=== PATIENT | female | born 1995 | race Caucasian/White ===

== ENCOUNTER 2025-05-07 10:40 | Outpatient (CLI) | payer MEDICAID, SELFPAY ==
[2025-05-07 17:54] LABS: Hematocrit 35.1 % (37.0-47.0); Hemoglobin 9.7 g/dL (12.2-16.2); Immature Granulocytes % 0.2 %; Mean Corpuscular Hemoglobin 18.5 pg (27.0-31.2); Mean Corpuscular Volume 66.9 fl (81-99); Nucleated Red Blood Cells % 0 %; Platelet Count 333 K/mm3 (142-424); Red Blood Count 5.25 M/mm3 (4.20-5.40); Red Cell Distribution Width-SD 50.8 fL; White Blood Count 9.7 K/mm3 (4.8-10.8)
[2025-05-07 18:23] LABS: Alanine Aminotransferase 10 U/L (12-78); Albumin Level 4.0 g/dl (3.5-5.0); Albumin/Globulin Ratio 1.7 (1.1-1.8); Alkaline Phosphatase 78 U/L (38-126); Anion Gap 20.5 mEq/L (5-15); Aspartate Amino Transferase 22 U/L (14-36); Bilirubin,Total 0.5 mg/dl (0.2-1.3); Blood Urea Nitrogen 9 mg/dl (7-17); Calcium 8.0 mg/dl (8.4-10.2); Carbon Dioxide 18 mmol/L (22.0-30.0); Chloride 104 mmol/L (98-107); Cholesterol 125 mg/dl (140-200); Creatinine,Serum 0.80 mg/dl (0.52-1.04); Estimated Glomerular Filt Rate 85 ml/min (>60); GFR (African American) 103 ML/MIN (>60); Globulin 2.4 g/dL (1.3-3.2); HDL Cholesterol 38 mg/dl (40-60); Potassium 4.5 mmoL/L (3.5-5.1); Sodium 138 mmol/L (136-145); Total Protein,Serum 6.4 g/dl (6.3-8.2); Triglycerides 72 mg/dl (30-150)
[2025-05-07 18:24] LABS: Glucose 46 mg/dl (74-100)
[2025-05-07 18:51] LABS: Mean Corpuscular HGB Conc 27.6 g/dL (31.8-35.4)
[2025-05-07 18:55] LABS: Thyroid Stimulating Hormone 5.36 uIU/mL (0.465-4.68)
[2025-05-07 18:57] LABS: Hepatitis C Ab Qual. W/ RFX NEGATIVE (Negative)
--- OUTSIDE RECORDS SUMMARY | 2025-05-08 09:52 | XMS_ITS | Clinical Summary ---
Author Organization Healthcare Address [address] 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 32 tablet 11 07/23/2023 Active hydrOXYzine pamoate (Vistaril) 25 MG capsule Take 1 capsule (25 mg) by mouth 3 (three) times a day if needed for anxiety. 30 capsule 1 09/17/2023 Active hydrOXYzine HCl (Atarax) 25 MG tablet Take 1 tablet (25 mg) by mouth every 6 (six) hours if needed for anxiety. 120 tablet 12/17/2023 Active LaMICtal 25 MG tablet Take 1 tablet (25 mg) by mouth. 08/15/2024 Active norethindrone (Aygestin) 5 MG tablet Take 1 tablet (5 mg) by mouth daily. 30 tablet 3 12/25/2024 Active folic acid (Folvite) 1 MG tabletIndicatio ns:Folic acid deficiency Take 2 tablets (2 mg) by mouth daily. 60 tablet 3 12/27/2024 Active Hospital, Clinic, or Other Facility Administered Medication Ordered Dose Route Frequency Start Date End Date Status ferumoxytol (Feraheme) injection 510 mgIndications:Abnormal uterine bleeding (AUB),Chronic blood loss anemia,Iron deficiency anemia due to chronic blood loss 510 mg IV Once 12/27/2024 Active Active Problems Problem Noted Date Diagnosed Date Normal labor 02/10/2024 Abnormal ultrasound 01/21/2024 BMI 50.0-59.9, adult 01/21/2024 Breech presentation, no version 01/21/2024 Tobacco use disorder 12/16/2023 Iron deficiency 12/16/2023 GERD (gastroesophageal reflux disease) Overview (11/12/2023): 11/12/2023 taking pepcid, added pantoprazole Dichorionic diamniotic twin 09/12/2023 Overview (01/21/2024): Desires C/S regardless of presentation US today 01/21/2024 shows A with polyhydramnios; B smaller with lagging AC and elevated dopplers (1 instance of IAEDF); breech/transverse; NST reactive x2 MFM recommended BTMS due to high risk for PTD - sent to triage for BTMS 01/21/2024 I recommended delivery at for primary C/S due to 37w delivery of twins and high risk of NICU admission and getting at . Patient agrees. Case request submitted. Obesity complicating childbirth 09/12/2023 Overview (09/12/2023): Early GCT 130 Supervision of high risk in [facility] 09/12/2023 Overview (01/21/2024): NIPT neg, male/female Di/di twins Vitamin B 12 deficiency 09/12/2023 Overview (01/07/2024): Recheck B12 11/12/2023 normal Enlarged uterus 06/01/2023 Amenorrhea 03/05/2023 Assessment & Plan (03/24/2023 9:01 AM EDT): Remains amenorrheic. Labs normal. Ultrasound revealed polycystic ovaries. This is not a new finding and patient was aware she had this. Will have patient follow with MD for further evaluation and management. Assessment & Plan (03/05/2023 10:56 AM EDT): UPT negative in office. Labs ordered. TVUS ordered. Follow up in 1 month to review results. Uterine polyp 07/01/2022 Overview (06/01/2023): Had hysteroscopy D&C and polyp removal in 12/2022 SIS 06/01/2023 shows another polyp Recommend holding on polypectomy for now and optimizing thyroid, male infertility, weight loss, ovulation, tobacco cessation etc. Will reevaluate for polypectomy if worsening heavy bleeding or no with ovulatory cycles after 3-6 mo Tobacco abuse counseling 07/01/2022 Depression 07/01/2022 Pre-conception counseling 07/01/2022 Morbid obesity with body mass index (BMI) of 40. 0 or higher 05/27/2022 Abnormal uterine bleeding (AUB) 05/27/2022 Assessment & Plan (05/27/2022 3:51 PM EDT): l Urine test is negative. Lab work and ultrasound scheduled for patient. Plan for Pap at repeat visit. For painful intercourse, patient was scheduled for pelvic floor therapy. She will trial ibuprofen prior to intercourse. Plan for routine STI screening at repeat visit if patient desires. Dyspareunia in female 05/27/2022 Female infertility 03/30/2019 Overview (06/01/2023): A1C 5.1 2022, AMH pending Taking letrozole SIS 06/01/2023 showed polyp, tubal patency bilateral, polycystic ovaries Semen analysis showed low sperm counts Discussed optimizing partner's health - weight loss, etc Has urology consult end of june Discussed ovulation testing, timed intercourse Call with positive ovulation test to confirm ovulation with serum progesterone 7-8 days later Hypothyroidism 03/30/2019 Polycystic ovarian syndrome 03/30/2019 Abnormal uterine bleeding 03/01/2019 Resolved Problems Problem Noted Date Diagnosed Date Resolved Date 30 weeks gestation of 12/24/2023 12/26/2024 Assessment & Plan (12/24/2023 1:26 PM EST): First trimester 07/18/20234 Assessment & Plan (07/18/2023 8:13 PM EDT): Discussed nutrition, medication, and exercise in . Handouts given. Discussed avoidance of cat litter during . Discussed taking vitamin consistently. Discussed dating ultrasound, noninvasive testing, nuchal translucency ultrasound, and first-trimester blood work Dating ultrasound ordered. Follow-up in 4 weeks Family History Medical History Relation Name Comments Cancer Father Teddy yang Relation Name Status Comments Father Teddy yang Social History Tobacco Use Types Packs/Day Years Used Date Smoking Tobacco: Every Day Cigarettes 0.5 8 Smokeless Tobacco: Never Tobacco Cessation:Ready to Q uit: Not Asked; Counseling Given: Not Answered Comments:11/02-1 ppd Alcohol Use Standard Drinks/Week Comments No 0 (1 standard drink = 0.6 oz pur e alcohol) PHQ-2 Answer Date Recorded Patient Health Questionnaire-2 Score 0 12/25/2024 PRAPARE - Transportation Answer Date Re corded In the past 12 months, has l ack of transportation kept you from medical appointments or from getting medications? No 07/02 In the past 12 months, has l ack of transportation kept you from meetings, work, or from getting things needed for daily living? No 07/14/2023 Worthington Depression Scale Answer Date Recorded Wor[place] Depression Scale Total 0 03/29/2024 The thought of harming myself has occurred to me . Never 03/29/2024 PHQ-9 Answer Date Recorded Patient Health Questionnaire-9 Score 0 11/07/2024 CAGE ASSESSMENT Answer Date Recorded Cage unable to access Not on file 02/10/2024 Cage max number of drinks Not on file 2023 Cage Beverages a week Not on file 02/10/2024 Have you ever felt you should CUT down on your d rinking? 0 02/10/2024 Have you been ANNOYED by people criticizing your drinking? 0 02/10/2024 Have you felt GUILTY about your drinking? 0 02/10/2024 Have you had a drink first t mitzi in the morning ([employer]) to steady your nerves or to get rid of a hangover? 0 02/10/2024 CAGE Questionnaire Score 0 024 PHQ-2A Answer Date Recorded Patient Health Questionnaire-2 Score 0 09/17/2023 Comments Unknown Sex and Gender Information Value Date Recorded Sex Assigned at Female 08/10/2022 3:51 PM EDT Legal Sex Female 6:32 PM EDT Gender Identity Female 08/10/2022 3:51 PM EDT Sexual Orientation Straight 08/10/2022 3: 51 PM EDT Last Filed Vital Signs Vital Sign Reading Time Taken Comments Blood Pressure 109/72 12/25/2024 8:49 AM EST Pulse 84 12/25/2024 8:49 AM EST Temperature 36.7 C (98 F) 12/25/2024 8:49 AM EST Respiratory Rate 17 12/25/2024 8:49 AM EST Oxygen Saturation 99% 12/25/2024 8:49 AM EST Inhaled Oxygen Concentration - - Weight 120 kg (265 lb 6.9 oz) 12/25/2024 8:49 AM EST Height 157.5 cm (5' 2 ) 12/25/2024 8:49 AM EST Body Mass Index 48.55 12/25/2024 8:49 AM EST Plan of Treatment Upcoming Encounters Date Type Department Care Team (Late st Contact Info) Description 10/10/2025 2:00 PM EST Office Visit [facility] [address], [address] [place] [address] Deyanira Yang, [address] [place] [address] Health Maintenance Due Date Last Done Comments [facility]-HIV Screening 1996 [facility]-Hepatitis C Screening 1996 [facility]-Infant/Child/Adol SDOH Screenings 1996 [id number] Vaccine (#1) 2001 [facility]-Varicella Vaccines (1 of 2 - 13+ 2-dose series) 2009 HPV Vaccines (1 - 3-dose series) 2011 [facility]- SDOH Screenings 2014 [facility]-Adult SDOH Screenings 2014 [facility]-DTaP,Tdap,and Td Vaccines (1 - Tdap) 2015 [facility]-Hepatitis B Vaccines (1 of 3 - 19+ 3-dose series) 2015 [facility]-Pneumococcal Vaccine: Pediatrics (0 to 5 Years) and At-Risk Patients (6 to 49 Years) (1 of 2 - PCV) 2015 [facility]-Pap Smear 06/11/2025 06/11/2022 [facility]-Influenza Vaccine (#1) 2025 [facility]-Depression Screening 12/25/2025 025, 11/07/2024, 03/29/2024 [facility]-Zoster Vaccines (1 of 2) 2046 [facility]-Obesity Intervention Completed 025, 12/25/2024, 11/07/2024, Additional history exists [facility]-HIB Vaccines Aged Out No longer e ligible based on patient's age to complete this topic [facility]-Hepatitis A Vaccines Aged Out No longer eligible based on patient's age to complete this topic [facility]-IPV Vaccines Aged Out No longer e ligible based on patient's age to complete this topic [facility]-Rotavirus Vaccines Aged Out No lo nger eligible based on patient's age to complete this topic Procedures Procedure Name Priority Date/Time Associated Diagnosis Comments PAP TEST - CYTOLOGY Routine 06/11/2022 from Last 3 Months or Most Recently Relevant to Health Maintenance Results * Pap Test (06/11/2022) Swab Vaginal and cervical cytologic material / Unknown Cinda Fan APRN LAB CYTOLOGY ORDERABLES Final Result from Last 3 Months or Most Recently Relevant to Health Maintenance Insurance ([place]) [id number] [id number] [facility] MEDICAID [place] Advance Directives * Full Code (Latest Code Status on File) Date Activated Date Inactivated Comments 02/10/2024 8:57 PM 02/14/2024 6:24 PM Question Answer Comments Patient has decision-making capacity? Yes Care Teams [employer] Relationship Specialty Start Date End Date Pcp, No [address] [place] [address] PCP - General Family Medicine 06/12/24
--- OUTSIDE RECORDS SUMMARY | 2025-05-08 09:52 | XMS_ITS | Referral Summary ---
Author Organization [employer] ([place], [place], [place], [place]) Address [address] [place] [address] Care Team Providers Care Compliance Clerk Name Role Phone [facility] Primary Care Provider Allergies Active Allergy Reactions Criticality Noted Date Comments Penicillin 08/07/2023 Medications No known medications Active Problems Problem Noted Date Diagnosed Date Dysfunctional uterine bleeding 11/08/2024 Acute blood loss anemia 11/08/2024 Anemia, unspecified type 11/08/2024 Social History Tobacco Use Types Packs/Day Years Used Date Smoking Tobacco: Every Day Cigarettes Smokeless Tobacco: Never Tobacco Cessation:Ready to Q uit: Not Asked; Counseling Given: Not Answered Alcohol Use Standard Drinks/Week Comments Not Currently 0 (1 standard drink = 0.6 oz pur e alcohol) Family and Community Support Answer Sunil e Recorded Help with Day to Day Activities Not on file 11/18/2023 Feeling Lonely or Isolated Not on file 11/18 Educational Attainment Answer Date Kannan rded Speak language other than [place] Konger at home Not on file 11/18/2023 Want help with school or training Not on file 11/18/2023 Substance Use Answer Date Recorded Used prescription meds for non-medical reasons N ot on file 11/18/2023 Used illegal drugs past 12 months Not on file 11/18/2023 Comments No Sex and Gender Information Value Date Recorded Sex Assigned at Not on file Legal Sex Female 5:26 PM CDT Gender Identity Not on file Sexual Orientation Not on file Last Filed Vital Signs Vital Sign Reading Time Taken Comments Blood Pressure 146/98 11/08/2024 2:41 PM EST Pulse 98 11/08/2024 2:41 PM EST Temperature 36.7 C (98 F) 11/08/2024 11:52 AM EST Respiratory Rate 18 11/08/2024 2:41 PM EST Oxygen Saturation 100% 11/08/2024 11:52 AM EST Inhaled Oxygen Concentration - - Weight 120.2 kg (265 lb) 11/08/2024 11:52 AM EST Height 160 cm (5' 3 ) 11/08/2024 11:52 AM EST Body Mass Index 46.94 11/08/2024 11:52 AM EST Plan of Treatment Not on file Insurance [employer] [facility] Care Teams Compliance Clerk Relationship Specialty Start Date End Date [facility], [facility] [place] [address] PCP - General 11/08/24
--- OUTSIDE RECORDS SUMMARY | 2025-05-08 09:52 | XMS_ITS | Clinical Summary ---
Author Organization [employer] ([place], [place], [place], [place]) Address [address] [place] [address] Care Team Providers Care Soda Drier Feeder Name Role Phone [facility] Primary Care Provider Allergies Active [...] Date Kannan rded Speak language other than Burundian at home Not on file 11/18/2023 Want [...] 11/08/2024 11:52 AM EST Plan of Treatment Health Maintenance Due Date Last Done Comments Depression Screening (12+) 2008 Tobacco Cessation Counseling and Screening (12+) 06/09 HIV Screening 2011 Hepatitis C Screening 2014 DTAP/TDAP/TD VACCINES (1 - Tdap) 2015 Pneumococcal Vaccine: 0-49 Years (1 of 2 - PCV) 2014 Lipid Panel 2016 COVID-19 VACCINE ( - season) 2024 Pap Smear 06/11/2025 06/11/2022 Influenza Vaccine (#1) 2025 Insurance [employer] [facility] Care Teams Soda Drier Feeder Relationship Specialty Start Date End Date [facility], [facility] [place] [address] PCP - General 11/08/24
[2025-05-09 05:09] LABS: Hepatitis B Surface Antigen Negative (Negative)
== END 2025-05-07 23:59 | disposition home or self-care (01) ==
LOC: LAB.DROPOF 05-08 09:51
PROVIDERS: PCP Family Medicine; Visit Provider Family Medicine
DX: E03.9 Hypothyroidism, unspecified (principal); Z11.4 Encounter for screening for human immunodeficiency virus [HIV]; Z11.59 Encounter for screening for other viral diseases
CPT/HCPCS: 80053; 80061; 84443; 85025; 86803; 87340; 87389